=== PATIENT | male | born 2000 | race Caucasian/White ===

== ENCOUNTER 2019-06-29 17:16 | Emergency (ER) | payer SELFPAY ==
[~2019-06-29] VITALS: Ht 180.3 cm; Wt 63.6 kg
[2019-06-29 17:23] VITALS: BP 127/75; TEMP 98
[2019-06-29 19:58] VITALS: PULSE 85
== END 2019-06-29 19:58 | disposition left against medical advice (07) ==
LOC: COL.ER 17:16
DX: R56.9 Unspecified convulsions (principal); F17.210 Nicotine dependence, cigarettes, uncomplicated